=== PATIENT | male | born 1945 | race Caucasian/White ===

== ENCOUNTER 2020-07-16 08:40 | Outpatient (REF) | payer OTHER, SELFPAY ==
[2020-07-16 11:10] LABS: MANUAL DIFF FLAG NO
[2020-07-16 11:32] LABS: Alanine Aminotransferase 15 U/L (0-40); Albumin Level 4.3 g/dL (3.5-5.0); Alkaline Phosphatase 45 U/L (39-117); Anion Gap 11 (12-20); Aspartate Amino Transferase 15 U/L (5-37); Bilirubin Total 1.2 mg/dL (0.0-1.0); Blood Urea Nitrogen 16 mg/dL (9-16); Calcium 8.9 mg/dL (8.4-10.2); Carbon Dioxide 27 mmol/L (22-29); Chloride 106 mmol/L (96-108); Cholesterol 180 mg/dL; Estimated Glomerular Filt Rate > 60; Glucose Fasting 101 mg/dL (60-99); HDL Cholesterol 73 mg/dL; LDL Cholesterol Calculated 92 mg/dl; Potassium 4.3 mmol/l (3.3-5.1); Sodium 140 mmol/L (135-145); Total Protein 6.9 g/dL (6.5-8.0); Triglycerides 78 mg/dL
[2020-07-16 11:34] LABS: Basophils Percent Auto 0.7 % (0-2); Eosinophils Absolute Auto 0.2 X10*3/uL (0.0-0.4); Eosinophils Percent Auto 4.3 % (0-4); Hematocrit 45.4 % (42-52); Hemoglobin 15.1 g/dl (14.0-18.0); Imm Gran Abs Auto 0.04 X10*3/uL (0.00-0.03); Lymphocytes Percent Auto 23.3 % (20-40); Mean Corpuscular HGB Conc 33.3 g/dl (31.0-36.0); Mean Corpuscular Hemoglobin 31.7 pg (27.0-33.0); Mean Corpuscular Volume 95.4 fL (80-98); Mean Platelet Volume 9.7 fL (9.4-12.4); Monocytes Absolute Auto 0.4 X10*3/uL (0.1-1.2); Monocytes Percent Auto 10.2 % (2-11); Neutrophils Absolute Auto 2.5 X10*3/uL (2.0-8.3); Neutrophils Percent Auto 60.5 % (45-73); Platelet Count 156 X10*3/uL (160-400); Red Blood Count 4.76 X10*6/uL (4.60-5.80); Red Cell Distribution Width 12.5 % (11.0-16.0); White Blood Count 4.2 X10*3/uL (4.8-10.8)
[2020-07-16 11:49] LABS: PSA,Total (Free>4and<10) 0.18 ng/mL (0.00-4.00)
== END 2020-07-16 08:41 | disposition home or self-care (01) ==
LOC: CF 08:40
PROVIDERS: PCP Internal Medicine; Visit Provider Urology
DX: N40.1 Benign prostatic hyperplasia with lower urinary tract symptoms (principal); Z79.899 Other long term (current) drug therapy
CPT/HCPCS: 36415; 51798; 80053; 80061; 84153; 85025

== ENCOUNTER 2021-05-19 09:52 | Day surgery (SDC) | payer OTHER, SELFPAY ==
[2021-05-07 15:48] VITALS: BMI 24.7
--- NOTE | 2021-05-12 15:19 | HP_ITS ---
DATE OF SERVICE: 05/19/2021 HISTORY OF PRESENT ILLNESS: The patient is a 75-year-old male, seen today in the office for preop evaluation prior to cataract surgery with Dr. Hurst scheduled for May 19 and June 02. The patient feels well. PRESENT MEDICATIONS: Simvastatin 20 mg a day, finasteride 5 mg a day, vitamin D 1000 a day, Travatan and dorzolamide eye drops. He has had two Pfizer vaccines for COVID. REVIEW OF SYSTEMS: Weight is down 3 pounds. No fevers. No headaches. No palpitations or chest pains. No peripheral edema. Some dyspnea with exertion. No cough or wheeze. No heartburn or stomach pains. Nocturia x3. Arthritis in the left knee. Appetite is okay. No seasonal allergies. No rash complaints. PAST MEDICAL HISTORY: Significant for arthritis of the neck, intestinal polyps, elevated cholesterol, glaucoma, arthritis in the left knee, diverticulosis. ALLERGIES: NO ALLERGIES TO MEDICINES. SOCIAL HISTORY: He quit smoking over 30 years ago. PAST SURGICAL HISTORY: He has had a T and A as a child knee and surgery for arthritis. FAMILY HISTORY: Father at 75 from a stroke. Mother . He has several siblings. PHYSICAL EXAMINATION: GENERAL: He is awake and alert, in no distress. VITAL SIGNS: Temperature is 98, pulse 54, respirations 12, pressure 124/80, 97% saturation. Weight is 153.5, height is 5 feet 6 inches. HEENT: TMs clear. Pharynx clear. NECK: Supple. No nodes, bruits, or masses. HEART: Sounds S1 and S2. Regular rate. LUNGS: Clear. ABDOMEN: Soft and nontender. Positive bowel sounds. No HSM. EXTREMITIES: No clubbing, cyanosis, or edema. One to 2+ pulses. NEUROLOGICAL: Cranial nerves II through XII are intact. He moves all extremities. ASSESSMENTAND PLAN: He is medically stable for cataract surgery. I will be available if there are any medical problems. MD TESSY Brooks/MODL / [id number]
--- NOTE | 2021-05-19 07:08 | MHC.SHP ---
Pre-Procedural Eval Section A Date of Service: 05/19/21 Section B Chief Complaint: Cataract Right Eye, Right Eye Glaucoma Allergies: Allergies Allergy/AdvReac Type Severity Reaction Status Date / Time Beta-Blockers AdvReac Unknown Verified 05/16/21 11:01 (Beta-Adrenergic Bloc timolol AdvReac Unknown Verified 05/16/21 11:01 Plan I have reviewed the history and physical and performed a pertinent physical examination on my patient. No changes have occurred unless specified.
[2021-05-19 12:55] VITALS: BP 154/76; PULSE 53; RESP 16; TEMP 36.6; O2SAT 97
[2021-05-19] MEDS: Tetracaine HCl/PF 0.5% Oph Sol 4 ML DROPS 1 DROP EYE-RIGHT (13:15)
[2021-05-19] MEDS: Tropicamide 1 % Ophth Sol 3 ML BTL 1 DROP EYE-RIGHT ×3 (13:18→13:25)
[2021-05-19] MEDS: Phenylephrine HCL 2.5% Oph SoL 2 ML BOTTLE 1 DROP EYE-RIGHT ×3 (13:20→13:26)
[2021-05-19] MEDS: Lactated Ringers 1,000 ML 50 ML IVCONT ×2 (13:26→13:29)
--- NOTE | 2021-05-19 13:57 | HO.ANESPROP2 ---
[facility] Active Problems Active Problems: All Active Problems (Updated 05/07/21 @ 15:47 by Maria Luisa Lorenzana) BPH loc w urin obs/LUTS (Acute) Past Medical History Medical History BPH (benign prostatic hyperplasia) Elevated cholesterol Glaucoma Family History Family history of problems with anesthesia: No Surgical History Surgical History Hx of colonoscopy S/P left knee arthroscopy History of Problems with Anesthesia: No Social History Social History (Updated 05/07/21 @ 15:48 by Maria Luisa Lorenzana) Patient Tobacco Use Status: Former Tobacco user Quit Date: 1985 Are you DNR?: No Advance Directives: No Advance Directives Information Provided: No Advance Directives on File: No Meds Allergies Allergy/AdvReac Type Severity Reaction Status Date / Time Beta-Blockers AdvReac Severe Unknown Verified 05/19/21 12:51 (Beta-Adrenergic Bloc timolol AdvReac Unknown Verified 05/19/21 12:51 Active Medications: Current Medications Generic Name Dose Route Start Last Admin Trade Name Freq PRN Reason Stop Dose Admin Lactated Ringer's 500 mls @ 50 mls/hr 05/19/21 07:45 Lr IVCONT .Q10H HAWA Povidone Iodine 1 appl 05/19/21 07:08 Povidone Iodine 5 % Ophth Soln 30 Ml Bottle EYE-RIGHT PREOP PRN Pre-Op Surgical Implant Prophy Home Medications Medication Instructions Recorded Confirmed Last Taken Type dorzolamide 2 % eye drops 1 drp OPHTHALMIC (EYE) BID 07/16/20 05/07/21 Unknown History simvastatin 20 mg tablet 20 mg PO BEDTIME 07/16/20 05/07/21 Unknown History tamsulosin 0.4 mg capsule 0.8 mg PO BEDTIME 07/16/20 05/07/21 Unknown History travoprost 0.004 % eye drops 1 drp OPHTHALMIC (EYE) BEDTIME 07/16/20 05/07/21 Unknown History Exam Exam Date and Time: May 19, 2021 1357 Height,Weight and Vital Signs: Height 5 ft 7 in Weight 71.668 kg Last Vital Signs Temp 97.9 F 05/19/21 12:55 Pulse 53 08/16/21 12:55 Resp 16 05/19/21 12:55 BP 154/76 H 05/19/21 12:55 Pulse Ox 97 05/19/21 12:55 Airway Mallampati Class: II (Edentulous) TM Dist: >3cm Neck ROM: Full Heart: pantera Lungs: cta bl Assessment and Plan Assessment Anesthesia Assessment: Anesthesia Plan Discussed and Chart Reviewed Final Anesthetic Review Family History of Problems with Anesthesia: No History of Problems with Anesthesia: No NPO: Yes ASA Class: III Final Preanesthetic Review: No Changes in Pt Med Stat and Consent Obtained/Reviewed Patient Risk: Intermediate Procedure Risk: Intermediate Anesthetic Plan Anesthetic Plan: MAC: Disposition: Standard PACU
--- NOTE | 2021-05-19 14:26 | HO.PNOPHT ---
Ophthalmology Procedure Procedure Date of Service: 05/19/21 Ophthalmology Viscoelastic: Healbryant Duet Dual Pack Pro Ophthalmology Lenses: TECNIS [id number] (23.5) Procedure Notes: PREOPERATIVE DIAGNOSIS: Decreased visual acuity right eye secondary to cataract and glaucoma. POSTOPERATIVE DIAGNOSIS: Same PROCEDURE: Right cataract extraction with intraocular lens insertion and trabeculectomy, right eye SURGEON: Ernesto Hurst M.D. ANESTHESIA: Topical/MAC ESTIMATED BLOOD LOSS: None COMPLICATIONS: None After obtaining informed consent, the patient was brought to the operating room suite and placed in the supine position. After adequate sedation per anesthesia, topical drops of Tetracaine were given to the right eye. The eye was then prepped and draped in the usual sterile fashion. The operating room microscope was then positioned over the right eye and a lid speculum placed. 2% Lidocaine was instilled subconjunctivally. After awaiting 30 seconds, a paracentesis was created superiorly. Hemostasis was then achieved using wet field cautery. Mitomycin .4mg/ml was then placed in the conjunctival pocket and held in place for two minutes. The subconjunctival pocket was then irrigated copiously with 20 mls of BSS. Paracentesis was then created. Viscoelastic was then instilled into the anterior chamber. A crescent blade was then utilized to create a partial thickness sclera wound followed by advancement to clear cornea with the crescent blade. A keratome was then utilized to enter the anterior chamber. Capsulotomy forceps were then utilized to create a continuous circular tear capsulotomy. Hydrodissection and hydrodelineation were carried out until adequate mobilization of the nucleus occurred. Phacoemulsification was utilized to remove the dense central nucleus followed by removal of remnant cortical material utilizing the automated aspiration irrigation unit. Viscoelastic was then instilled into the posterior capsular bag followed by placement of a posterior chamber intraocular lens. Attention was then directed to create a trabeculectomy. A Rebeka punch was then utilized to create the trabeculectomy. The residual Viscoelastic was then removed utilizing the automated IA machine. The egress of aqueous was evaluated and found to be appropriate. The conjunctiva was then closed with a 9-0 vicryl suture. BSS was then instilled into the anterior chamber creating a superior bleb, without obvious leakage. Intracameral injection of Vigamox 0.3%, 0.1 ml and subtenon injection of Kenalog-40 0.2 ml was given followed by an atropine drop. The patient tolerated the procedure well and will be followed up in the a.m.
[2021-05-19 15:27] VITALS: BP 149/76; PULSE 50; RESP 16; TEMP 36.4; O2SAT 100
== END 2021-05-19 15:51 | disposition home or self-care (01) ==
PROVIDERS: PCP Internal Medicine; Visit Provider Ophthalmology
PROC: (CPT 66984; principal; 2021-05-19 13:00)
DX: H25.11 Age-related nuclear cataract, right eye (principal); H40.1111 Primary open-angle glaucoma, right eye, mild stage; Z83.511 Family history of glaucoma; E78.00 Pure hypercholesterolemia, unspecified; Z79.899 Other long term (current) drug therapy; Z87.891 Personal history of nicotine dependence
CPT/HCPCS: 66984; 66170; J2250; J3300; J7315; V2632

== ENCOUNTER 2021-06-02 08:26 | Day surgery (SDC) | payer OTHER, SELFPAY ==
[2021-05-07 15:50] VITALS: BMI 24.7
--- NOTE | 2021-05-26 14:52 | MHC.SHP ---
Pre-Procedural Eval Section A Date of Service: 05/26/21 The patient is an INPATIENT: No The History & Physical has been completed within 30 days and I have reviewed it.: Yes Section B Chief Complaint: Cataract Left Eye, Glaucoma Allergies: Allergies Allergy/AdvReac Type Severity Reaction Status Date / Time Beta-Blockers AdvReac Severe Unknown Verified 05/19/21 12:51 (Beta-Adrenergic Bloc timolol AdvReac Unknown Verified 05/19/21 12:51 Plan Diagnosis/Plan: Unchanged I have reviewed the history and physical and performed a pertinent physical examination on my patient. No changes have occurred unless specified.
--- NOTE | 2021-05-29 14:47 | HO.ANESPROP2 ---
Documented by User: Lashonda Overton NP 05/30/21 09:29 HPI - Anesthesia Eval Consult details Narrative: 75yo M for Left Cataract Extraction IOL Trabeculectomy PCP cleared Right eye 05/19/21: Midaz 1 PMFSH Active Problems Active Problems: All Active Problems (Updated 05/07/21 @ 15:47 by Maria Luisa Lorenzana RN) BPH loc w urin obs/LUTS (Acute) Past Medical History Medical History BPH (benign prostatic hyperplasia) Elevated cholesterol Glaucoma Family History Family history of problems with anesthesia: No Surgical History Surgical History Hx of colonoscopy S/P left knee arthroscopy History of Problems with Anesthesia: No Social History Social History Patient Tobacco Use Status: Former Tobacco user Quit Date: 1985 Use of substances other than those prescribed or required for medical reasons: No Are you DNR?: No Advance Directives: No Advance Directives Information Provided: No Advance Directives on File: No Meds Allergies Allergy/AdvReac Type Severity Reaction Status Date / Time Beta-Blockers AdvReac Severe Unknown Verified 05/19/21 12:51 (Beta-Adrenergic Bloc timolol AdvReac Unknown Verified 05/19/21 12:51 Home Medications Medication Instructions Recorded Confirmed Last Taken Type dorzolamide 2 % eye drops 1 drp OPHTHALMIC (EYE) BID 07/16/20 05/07/21 Unknown History simvastatin 20 mg tablet 20 mg PO BEDTIME 07/16/20 05/07/21 Unknown History tamsulosin 0.4 mg capsule 0.8 mg PO BEDTIME 07/16/20 05/07/21 Unknown History travoprost 0.004 % eye drops 1 drp OPHTHALMIC (EYE) BEDTIME 07/16/20 05/07/21 Unknown History Exam Exam Date and Time: May 29, 2021 1447 Height,Weight and Vital Signs: Height 5 ft 7 in Weight 71.668 kg Assessment and Plan Assessment Anesthesia Assessment: Chart Reviewed Final Anesthetic Review Family History of Problems with Anesthesia: No History of Problems with Anesthesia: No Documented by User: Lilian Anne MD 06/02/21 11:40 PMFSH Past Medical History Medical History BPH (benign prostatic hyperplasia) Elevated cholesterol Glaucoma Functional capacity: independent ambulation Surgical History Surgical History Hx of colonoscopy S/P left knee arthroscopy Social History Social History Patient Tobacco Use Status: Former Tobacco user Quit Date: 1985 Use of substances other than those prescribed or required for medical reasons: No Are you DNR?: No Advance Directives: No Advance Directives Information Provided: No Advance Directives on File: No Meds Allergies Allergy/AdvReac Type Severity Reaction Status Date / Time Beta-Blockers AdvReac Severe Unknown Verified 05/19/21 12:51 (Beta-Adrenergic Bloc timolol AdvReac Unknown Verified 05/19/21 12:51 Home Medications Medication Instructions Recorded Confirmed Last Taken Type dorzolamide 2 % eye drops 1 drp OPHTHALMIC (EYE) BID 07/16/20 05/07/21 Unknown History simvastatin 20 mg tablet 20 mg PO BEDTIME 07/16/20 05/07/21 Unknown History tamsulosin 0.4 mg capsule 0.8 mg PO BEDTIME 07/16/20 05/07/21 Unknown History travoprost 0.004 % eye drops 1 drp OPHTHALMIC (EYE) BEDTIME 07/16/20 05/07/21 Unknown History Exam Airway Mallampati Class: II (Edentulous) TM Dist: >3cm Neck ROM: Full Loose/Missing/Broken Teeth: Yes, Upper and Lower Heart: RRR Lungs: CTA Assessment and Plan Assessment Anesthesia Assessment: Anesthesia Plan Discussed Final Anesthetic Review NPO: Yes ASA Class: II Final Preanesthetic Review: Meds/Allgs Chart Reviewed, Consent Obtained/Reviewed and Anes Risks/Benef Reviewed Patient Risk: Low Procedure Risk: Low Anesthetic Plan Anesthetic Plan: MAC: Disposition: Standard PACU
[2021-06-02 10:44] VITALS: BP 183/74; PULSE 58; RESP 18; TEMP 36.6; O2SAT 97
[2021-06-02] MEDS: Phenylephrine HCL 2.5% Oph SoL 2 ML BOTTLE 1 DROP EYE-LEFT ×3 (10:47→10:49)
[2021-06-02] MEDS: Lactated Ringers 500 ML 50 ML IV (10:47)
[2021-06-02] MEDS: Tetracaine HCl/PF 0.5% Oph Sol 4 ML DROPS 1 DROP EYE-LEFT (10:47)
[2021-06-02] MEDS: Tropicamide 1 % Ophth Sol 3 ML BTL 1 DROP EYE-LEFT ×3 (10:47→10:49)
[2021-06-02 11:02] VITALS: BP 170/61
--- NOTE | 2021-06-02 12:15 | HO.PNOPHT ---
Ophthalmology Procedure Procedure Date of Service: 06/02/21 Ophthalmology Viscoelastic: Healon Duet Dual Pack Pro Ophthalmology Lenses: TECNIS [id number] (23.5) Procedure Notes: PREOPERATIVE DIAGNOSIS: Decreased visual acuity left eye secondary to cataract and glaucoma POSTOPERATIVE DIAGNOSIS: Same PROCEDURE: Left cataract extraction with intraocular lens insertion and trabeculectomy, left eye SURGEON: Ernesto Hurst M.D. ANESTHESIA: Topical/MAC ESTIMATED BLOOD LOSS: None COMPLICATIONS: None After obtaining informed consent, the patient was brought to the operating room suite and placed in the supine position. After adequate sedation per anesthesia, topical drops of Tetracaine were given to the left eye. The eye was then prepped and draped in the usual sterile fashion. The operating room microscope was then positioned over the left eye and a lid speculum placed. 2% Lidocaine was instilled subconjunctivally. After awaiting 30 seconds, a paracentesis was created superiorly. Hemostasis was then achieved using wet field cautery. Mitomycin .4mg/ml was then placed in the conjunctival pocket and held in place for two minutes. The subconjunctival pocket was then irrigated copiously with 20 mls of BSS. Paracentesis was then created. Viscoelastic was then instilled into the anterior chamber. A crescent blade was then utilized to create a partial thickness sclera wound followed by advancement to clear cornea with the crescent blade. A keratome was then utilized to enter the anterior chamber. Capsulotomy forceps were then utilized to create a continuous circular tear capsulotomy. Hydrodissection and hydrodelineation were carried out until adequate mobilization of the nucleus occurred. Phacoemulsification was utilized to remove the dense central nucleus followed by removal of remnant cortical material utilizing the automated aspiration irrigation unit. Viscoelastic was then instilled into the posterior capsular bag followed by placement of a posterior chamber intraocular lens. Attention was then directed to create a trabeculectomy. A Rebeka punch was then utilized to create the trabeculectomy. The residual Viscoelastic was then removed utilizing the automated IA machine. The egress of aqueous was evaluated and found to be appropriate. The conjunctiva was then closed with a 9-0 vicryl suture. BSS was then instilled into the anterior chamber creating a superior bleb, without obvious leakage. Intracameral injection of Vigamox 0.3%, 0.1 ml and subtenon injection of Kenalog-40 0.2 ml was given followed by an atropine drop. The patient tolerated the procedure well and will be followed up in the a.m.
[2021-06-02 13:28] VITALS: BP 137/61; PULSE 53; RESP 16; TEMP 36.5; O2SAT 99
[2021-06-02 13:40] VITALS: BP 140/62; PULSE 56; RESP 16; O2SAT 99
== END 2021-06-02 13:41 | disposition home or self-care (01) ==
PROVIDERS: PCP Internal Medicine; Visit Provider Ophthalmology
PROC: (CPT 66984; principal; 2021-06-02 12:40)
DX: H25.12 Age-related nuclear cataract, left eye (principal); H40.1421 Capsular glaucoma with pseudoexfoliation of lens, left eye, mild stage; H54.7 Unspecified visual loss; Z83.511 Family history of glaucoma; E78.00 Pure hypercholesterolemia, unspecified; Z79.899 Other long term (current) drug therapy; Z87.891 Personal history of nicotine dependence
CPT/HCPCS: 66984; 66170; J2250; J3010; J3300; J7315; V2632

== ENCOUNTER 2021-07-09 07:01 | Outpatient (REF) | payer OTHER, SELFPAY ==
[2021-07-09 12:03] LABS: PSA,Total (Free>4and<10) 0.17 ng/mL (0.00-4.00)
== END 2021-07-09 07:02 | disposition home or self-care (01) ==
LOC: HO.HMGCLDS 07:01
PROVIDERS: PCP Internal Medicine; Visit Provider Urology
DX: Z12.5 Encounter for screening for malignant neoplasm of prostate (principal); N40.1 Benign prostatic hyperplasia with lower urinary tract symptoms
CPT/HCPCS: 36415; 84153

== ENCOUNTER → 2021-07-17 08:42 | Outpatient (BNVA) | payer OTHER, SELFPAY | PROVIDERS: Visit Provider Urology | DX: N40.1 Benign prostatic hyperplasia with lower urinary tract symptoms (principal) ==

== ENCOUNTER 2021-08-20 07:13 | Outpatient (REF) | payer OTHER, SELFPAY ==
[2021-08-20 11:28] LABS: MANUAL DIFF FLAG NO
[2021-08-20 11:38] LABS: Basophils Percent Auto 0.4 % (0-2); Eosinophils Absolute Auto 0.2 X10*3/uL (0.0-0.4); Eosinophils Percent Auto 3.3 % (0-4); Hematocrit 45.2 % (42.0-52.0); Hemoglobin 15.3 g/dl (14.0-18.0); Imm Gran Abs Auto 0.03 X10*3/uL (0.00-0.03); Imm Gran Pct Auto 0.7 % (0.0-0.4); Lymphocytes Absolute Auto 1.2 X10*3/uL (1.2-4.9); Lymphocytes Percent Auto 26.5 % (20-40); Mean Corpuscular HGB Conc 33.8 g/dl (31.0-36.0); Mean Corpuscular Volume 94.6 fL (80.0-98.0); Mean Platelet Volume 9.7 fL (9.4-12.4); Monocytes Absolute Auto 0.4 X10*3/uL (0.1-1.2); Monocytes Percent Auto 9.6 % (2-11); Neutrophils Absolute Auto 2.7 x10*3/uL (2.0-8.3); Neutrophils Percent Auto 59.5 % (45-73); Platelet Count 167 X10*3/uL (160-400); Red Blood Count 4.78 X10*6/uL (4.60-5.80); Red Cell Distribution Width 12.4 % (11.0-16.0); White Blood Count 4.6 X10*3/uL (4.8-10.8)
[2021-08-20 12:05] LABS: Alanine Aminotransferase 16 U/L (0-40); Albumin Level 4.2 g/dL (3.5-5.0); Alkaline Phosphatase 49 U/L (39-117); Anion Gap 11 (12-20); Aspartate Amino Transferase 18 U/L (5-37); Bilirubin Total 1.3 mg/dL (0.0-1.0); Blood Urea Nitrogen 15 mg/dL (9-16); Calcium 8.8 mg/dL (8.4-10.2); Carbon Dioxide 27 mmol/L (22-29); Chloride 105 mmol/L (96-108); Cholesterol 196 mg/dL; Estimated Glomerular Filt Rate > 60; Glucose Fasting 90 mg/dL (60-99); HDL Cholesterol 75 mg/dL; LDL Cholesterol Calculated 106 mg/dl; Potassium 4.2 mmol/L (3.3-5.1); Sodium 139 mmol/L (135-145); Total Protein 6.7 g/dL (6.5-8.0); Triglycerides 78 mg/dL
== END 2021-08-20 07:14 | disposition home or self-care (01) ==
LOC: HO.HMGCLDS 07:13
PROVIDERS: PCP Internal Medicine; Visit Provider Internal Medicine
DX: N40.0 Benign prostatic hyperplasia without lower urinary tract symptoms (principal); E78.00 Pure hypercholesterolemia, unspecified; K57.90 Diverticulosis of intestine, part unspecified, without perforation or abscess without bleeding
CPT/HCPCS: 36415; 80053; 80061; 85025

== ENCOUNTER 2022-02-16 10:38 | Outpatient (REF) | payer OTHER, SELFPAY ==
[2022-02-16 13:33] LABS: MANUAL DIFF FLAG NO
[2022-02-16 13:35] LABS: Basophils Percent Auto 0.4 % (0-2); Eosinophils Absolute Auto 0.1 X10*3/uL (0.0-0.4); Eosinophils Percent Auto 2.9 % (0-4); Hematocrit 43.9 % (42.0-52.0); Hemoglobin 14.8 g/dl (14.0-18.0); Imm Gran Abs Auto 0.03 X10*3/uL (0.00-0.03); Imm Gran Pct Auto 0.7 % (0.0-0.4); Lymphocytes Absolute Auto 1.1 X10*3/uL (1.2-4.9); Lymphocytes Percent Auto 24.3 % (20-40); Mean Corpuscular HGB Conc 33.7 g/dl (31.0-36.0); Mean Corpuscular Hemoglobin 31.4 pg (27.0-33.0); Mean Corpuscular Volume 93.2 fL (80.0-98.0); Mean Platelet Volume 9.9 fL (9.4-12.4); Monocytes Absolute Auto 0.5 X10*3/uL (0.1-1.2); Monocytes Percent Auto 10.8 % (2-11); Neutrophils Absolute Auto 2.7 x10*3/uL (2.0-8.3); Neutrophils Percent Auto 60.9 % (45-73); Platelet Count 169 X10*3/uL (160-400); Red Blood Count 4.71 X10*6/uL (4.60-5.80); Red Cell Distribution Width 12.8 % (11.0-16.0); White Blood Count 4.5 X10*3/uL (4.8-10.8)
[2022-02-16 13:48] LABS: Appearance Urine CLEAR; Color Urine YELLOW; Glucose Urine UA NEG (NEG); Leukocyte Esterase Urine TRACE (NEG); Nitrite Urine NEG (NEG); Specific Gravity - Urine 1.025 (1.005-1.025); UACC Culture Trigger NO; Urine Blood 3+ (NEG); Urine Ketones NEG (NEG); Urine Protein TRACE MG/DL (NEG-TRACE)
[2022-02-16 13:59] LABS: Anion Gap 12 (12-20); Blood Urea Nitrogen 16 mg/dL (9-16); Calcium 9.6 mg/dL (8.4-10.2); Carbon Dioxide 28 mmol/L (22-29); Chloride 106 mmol/L (96-108); Estimated Glomerular Filt Rate > 60; Glucose Random 92 mg/dL (60-115); Potassium 4.6 mmol/L (3.3-5.1); Sodium 141 mmol/L (135-145)
[2022-02-16 14:13] LABS: Erythrocyte Sedimentation Rate 2 MM/HR (0-15)
[2022-02-16 14:15] LABS: Bacteria Urine 1+ /LPF; UACC CULT YES; WBC Urine 30-49 /HPF (0-4)
[2022-02-16 14:23] LABS: Free T4 (Free Thyroxine) 0.94 ng/dL (0.71-1.85); Thyroid Stimulating Hormone 1.33 uIU/mL (0.32-4.0)
[2022-02-16 14:46] LABS: Vitamin B12 339 pg/mL (200-900)
== END 2022-02-16 10:39 | disposition home or self-care (01) ==
LOC: HO.10HDL 10:38
PROVIDERS: Visit Provider Internal Medicine
DX: R31.9 Hematuria, unspecified (principal); N40.0 Benign prostatic hyperplasia without lower urinary tract symptoms; Z91.81 History of falling
CPT/HCPCS: 36415; 80048; 81001; 81003; 82607; 84439; 84443; 85025; 85652; 86140; 87086

== ENCOUNTER 2022-02-19 07:14 | Outpatient (REF) | payer OTHER, SELFPAY ==
[2022-02-19 11:26] LABS: Appearance Urine CLEAR; Color Urine YELLOW; Glucose Urine UA NEG (NEG); Leukocyte Esterase Urine NEG (NEG); Nitrite Urine NEG (NEG); PH 7.5 (5.0-8.0); Specific Gravity - Urine 1.015 (1.005-1.025); UACC Culture Trigger NO; Urine Blood 2+ (NEG); Urine Ketones NEG (NEG); Urine Protein NEG (NEG-TRACE)
[2022-02-19 11:44] LABS: UACC CULT YES
== END 2022-02-19 07:15 | disposition home or self-care (01) ==
LOC: HO.HMGCLDS 07:14
PROVIDERS: Visit Provider Internal Medicine
DX: R31.9 Hematuria, unspecified (principal)
CPT/HCPCS: 81001; 87086

== ENCOUNTER 2022-07-08 09:13 | Outpatient (REF) | payer MEDICARE, SELFPAY ==
[2022-07-08 17:51] LABS: Urine Cytology See Pathology rpt
== END 2022-07-08 09:14 | disposition home or self-care (01) ==
LOC: HO.LAB 09:13
PROVIDERS: PCP Internal Medicine; Visit Provider Urology
DX: R31.29 Other microscopic hematuria (principal); N39.43 Post-void dribbling; N40.1 Benign prostatic hyperplasia with lower urinary tract symptoms
CPT/HCPCS: 51798; 88112; 99212

== ENCOUNTER 2022-08-21 08:50 | Outpatient (REF) | payer MEDICARE, SELFPAY ==
[2022-08-21 17:15] LABS: Urine Cytology See Pathology rpt
== END 2022-08-21 08:51 | disposition home or self-care (01) ==
LOC: HO.LAB 08:50
PROVIDERS: PCP Internal Medicine; Visit Provider Urology
DX: C67.9 Malignant neoplasm of bladder, unspecified (principal); R31.9 Hematuria, unspecified; N40.1 Benign prostatic hyperplasia with lower urinary tract symptoms; N39.43 Post-void dribbling
CPT/HCPCS: 52000; 88112; 99212

== ENCOUNTER 2022-08-28 07:04 | Outpatient (REF) | payer MEDICARE, SELFPAY ==
[2022-08-28 07:51] LABS: Blood Urea Nitrogen 18 mg/dL (9-16); Estimated Glomerular Filt Rate > 60
== END 2022-08-28 07:05 | disposition home or self-care (01) ==
LOC: HO.LAB 07:04
PROVIDERS: PCP Internal Medicine; Visit Provider Urology
DX: C67.9 Malignant neoplasm of bladder, unspecified (principal)
CPT/HCPCS: 36415; 82565; 84520

== ENCOUNTER 2022-09-01 08:17 | Outpatient (REF) | payer MEDICARE, SELFPAY ==
--- NOTE | ~2022-09-01 | CT_ITS ---
EXAMINATION: CT ABDOMEN AND PELVIS WITHOUT AND WITH CONTRAST CLINICAL INFORMATION: Gross hematuria. COMPARISON: Renal ultrasound 05/31/2018. TECHNIQUE: Noncontrast CT of the abdomen and pelvis is performed followed by split bolus contrast-enhanced images using 85 mL Omnipaque 350 contrast.? Postcontrast imaging is performed during the combined nephrogram and excretion phase. Sagittal and coronal reformatted images were obtained on the technologist's workstation for both the precontrast and postcontrast phases. This CT examination was performed using dose optimization techniques as appropriate, variously including the following: *Automated exposure control *Adjustment of mA and/or kV according to patient size (this includes techniques or standardized protocols for targeted exams where dose is matched to indication/reason for exam; i.e. extremities or head) *Use of iterative reconstruction technique DLP: 551 mGy-cm FINDINGS: LUNG BASES: The visualized lung bases are unremarkable. LIVER, GALLBLADDER, AND BILIARY TREE: The liver is normal in size, shape, and attenuation. No focal hepatic lesion or biliary ductal dilatation is present. The gallbladder is unremarkable with no evidence of radiopaque gallstones, gallbladder wall thickening, or obvious pericholecystic inflammatory changes. PANCREAS: Unremarkable. SPLEEN: Unremarkable. ADRENAL GLANDS: Unremarkable. KIDNEYS AND URETERS: There is a 4 mm nonobstructive calculi in the lower pole calyx of the left kidney. Following IV contrast there is symmetric bilateral cortical nephrograms without any enhancing renal mass, cyst or mass effect. No perinephric stranding seen. There is good opacification of bilateral kidney pelvises and the calyces without obstruction. 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 Both ureters unite distally in the in the lower pelvis is one ureter as it enters into the bladder. BLADDER: The bladder is well opacified with excreted urinary contrast.. There is eccentric left lateral and posterior bladder wall thickening suspicious of a bladder mass. The thickening involves superiorly as well. The bladder thickness maximum measures 1.5 cm. GASTROINTESTINAL TRACT: Scattered stool and gas is seen throughout the colon without distention. The small bowel loops are normal caliber. Appendix is not visualized. The stomach is nondistended. ABDOMINAL WALL: No significant hernia is appreciated. LYMPH NODES: There is a 6 mm right internal iliac lymph node axial image 60/8. No abnormal inguinal lymph nodes are seen. VASCULAR: Unremarkable. PELVIC VISCERA: No free fluid. Nonspecific mild thickening of the rectoanal junction is noted. No fat stranding. OSSEUS STRUCTURES: There is moderate ventral spondylosis throughout the lumbar spine. No aggressive lytic or sclerotic process seen. Superior endplate Schmorl's node seen at L5 vertebra. CT/CT urogram IMPRESSION: 1. Eccentric left lateral and posterior bladder wall thickening suspicious for BLADDER MASS. The bladder wall thickening extends superiorly as well. Findings are highly suspicious for bladder mass and cystoscopy is recommended. 2. There is a 6 mm right internal iliac lymph node. 3. Nonobstructive 4 mm calculi lower pole left kidney. No enhancing renal mass, cyst or hydronephrosis. 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 4. Mild constipation.
[2022-09-01] MEDS: iohexoL 350 MG/ML 100 ML INFUS..BTL IV (09:52)
== END 2022-09-01 08:18 | disposition home or self-care (01) ==
LOC: HO.CT 08:17
PROVIDERS: PCP Internal Medicine; Visit Provider Urology
DX: C67.9 Malignant neoplasm of bladder, unspecified (principal); R31.0 Gross hematuria
CPT/HCPCS: 74178; Q9967

== ENCOUNTER 2022-09-10 06:56 | Outpatient (REF) | payer MEDICARE, SELFPAY ==
[2022-09-10 11:21] LABS: MANUAL DIFF FLAG NO
[2022-09-10 11:42] LABS: Basophils Percent Auto 0.5 % (0-2); Eosinophils Absolute Auto 0.1 X10*3/uL (0.0-0.4); Eosinophils Percent Auto 3.4 % (0-4); Hematocrit 45.2 % (42.0-52.0); Hemoglobin 14.9 g/dl (14.0-18.0); Imm Gran Abs Auto 0.03 X10*3/uL (0.00-0.03); Imm Gran Pct Auto 0.7 % (0.0-0.4); Lymphocytes Absolute Auto 1.1 X10*3/uL (1.2-4.9); Lymphocytes Percent Auto 27.4 % (20-40); Mean Corpuscular Hemoglobin 31.1 pg (27.0-33.0); Mean Corpuscular Volume 94.4 fL (80.0-98.0); Monocytes Absolute Auto 0.5 X10*3/uL (0.1-1.2); Monocytes Percent Auto 13.1 % (2-11); Neutrophils Absolute Auto 2.3 x10*3/uL (2.0-8.3); Neutrophils Percent Auto 54.9 % (45-73); Platelet Count 168 X10*3/uL (160-400); Red Blood Count 4.79 X10*6/uL (4.60-5.80); Red Cell Distribution Width 12.6 % (11.0-16.0); White Blood Count 4.1 X10*3/uL (4.8-10.8)
[2022-09-10 12:18] LABS: Alanine Aminotransferase 28 U/L (0-40); Albumin Level 4.3 g/dL (3.5-5.0); Alkaline Phosphatase 55 U/L (39-117); Anion Gap 9 (12-20); Aspartate Amino Transferase 23 U/L (5-37); Bilirubin Total 1.3 mg/dL (0.0-1.0); Blood Urea Nitrogen 14 mg/dL (9-16); Calcium 9.6 mg/dL (8.4-10.2); Carbon Dioxide 31 mmol/L (22-29); Chloride 104 mmol/L (96-108); Cholesterol 184 mg/dL; Estimated Glomerular Filt Rate > 60; Glucose Fasting 93 mg/dL (60-99); HDL Cholesterol 65 mg/dL; LDL Cholesterol Calculated 105 mg/dl; Potassium 4.2 mmol/L (3.3-5.1); Prostate Specific Antigen Scr 0.43 ng/mL (<0.05-4.0); Sodium 140 mmol/L (135-145); Total Protein 6.7 g/dL (6.5-8.0); Triglycerides 73 mg/dL
== END 2022-09-10 06:57 | disposition home or self-care (01) ==
LOC: HO.HMGCLDS 06:56
PROVIDERS: PCP Internal Medicine; Visit Provider Internal Medicine
DX: Z12.5 Encounter for screening for malignant neoplasm of prostate (principal); N40.0 Benign prostatic hyperplasia without lower urinary tract symptoms; E78.00 Pure hypercholesterolemia, unspecified; K57.90 Diverticulosis of intestine, part unspecified, without perforation or abscess without bleeding
CPT/HCPCS: 36415; 80053; 80061; 84153; 85025

== ENCOUNTER 2022-09-14 09:13 | Day surgery (SDC) | payer MEDICARE, SELFPAY ==
[2022-09-08 12:06] VITALS: BMI 24.5
--- NOTE | 2022-09-11 10:59 | HO.ANESPROP2 ---
Documented by User: Lashonda Overton NP 09/11/22 11:01 HPI - Anesthesia Eval Consult details Narrative: 77yo M for?TUR Bladder Tumor PMFSH Active Problems Active Problems: All Active Problems (Updated 09/08/22 @ 12:00 by Jennifer Moreland RN) BPH loc w urin obs/LUTS (Acute) Benign prostatic hyperplasia (BPH) with post-void dribbling (Acute) Urinary dribbling (Acute) Bladder cancer (Acute) Past Medical History Medical History Acute cystitis without hematuria Bladder outlet obstruction BPH (benign prostatic hyperplasia) Elevated cholesterol Glaucoma Hyperlipidemia Overactive bladder Parkinson disease UTI (urinary tract infection) Surgical History Surgical History History of biopsy of bladder History of cataract extraction Hx of colonoscopy S/P left knee arthroscopy History of Problems with Anesthesia: No Social History Social History Are you a primary hospice home care coordinator to a significant other at home: No Do you presently have visiting nurse or other home services: No Patient Tobacco Use Status: Former Tobacco user Quit Date: 1985 Tobacco use type: Cigarette Use of substances other than those prescribed or required for medical reasons: No Have you been hit, kicked, punched, or otherwise hurt by someone within the past year? If so, by whom?: No Are you DNR?: No Advance Directives: No Advance Directives Information Provided: Yes Advance Directives on File: No Recently lost weight without trying: No Eating poorly because of decreased appetite: No Nutrition Risks: No Nutritional Risk Meds Allergies Allergy/AdvReac Type Severity Reaction Status Date / Time Beta-Blockers AdvReac Severe low heart Verified 09/08/22 12:00 (Beta-Adrenergic Bloc rate- tired timolol AdvReac Low heart Verified 09/08/22 12:00 rate, tired Home Medications Medication Instructions Recorded Confirmed Last Taken Type simvastatin 20 mg tablet 20 mg PO BEDTIME 07/16/20 09/08/22 Unknown History ropinirole 0.25 mg tablet 0.25 mg PO TID 07/06/22 09/08/22 Unknown History carbidopa 25 mg-levodopa 100 mg 0.5 tab PO TID 09/08/22 09/08/22 Unknown History tablet Exam Exam Date and Time: September 11, 2022 1059 Height,Weight and Vital Signs: Height 5 ft 7 in Weight 71.214 kg Pertinent Lab Results Pertinent Lab Results: Laboratory Tests 09/10/22 09/10/22 07:05 07:05 WBC 4.1 L Hgb 14.9 Hct 45.2 Plt Count 168 Sodium 140 Potassium 4.2 Chloride 104 Carbon Dioxide 31 H BUN 14 Creatinine 0.91 Assessment and Plan Assessment Anesthesia Assessment: Chart Reviewed Final Anesthetic Review History of Problems with Anesthesia: No Documented by User: Lilian Anne MD 09/14/22 10:53 PMFSH Past Medical History Medical History Acute cystitis without hematuria Bladder outlet obstruction BPH (benign prostatic hyperplasia) Elevated cholesterol Glaucoma Hyperlipidemia Overactive bladder Parkinson disease UTI (urinary tract infection) Surgical History Surgical History History of biopsy of bladder History of cataract extraction Hx of colonoscopy S/P left knee arthroscopy Social History Social History Are you a primary hospice home care coordinator to a significant other at home: No Do you presently have visiting nurse or other home services: No Patient Tobacco Use Status: Former Tobacco user Quit Date: 1985 Tobacco use type: Cigarette Use of substances other than those prescribed or required for medical reasons: No Have you been hit, kicked, punched, or otherwise hurt by someone within the past year? If so, by whom?: No Are you DNR?: No Advance Directives: No Advance Directives Information Provided: Yes Advance Directives on File: No Recently lost weight without trying: No Eating poorly because of decreased appetite: No Nutrition Risks: No Nutritional Risk Meds Allergies Allergy/AdvReac Type Severity Reaction Status Date / Time Beta-Blockers AdvReac Severe low heart Verified 09/08/22 12:00 (Beta-Adrenergic Bloc rate- tired timolol AdvReac Low heart Verified 09/08/22 12:00 rate, tired Home Medications Medication Instructions Recorded Confirmed Last Taken Type simvastatin 20 mg tablet 20 mg PO BEDTIME 07/16/20 09/08/22 Unknown History ropinirole 0.25 mg tablet 0.25 mg PO TID 07/06/22 09/08/22 Unknown History carbidopa 25 mg-levodopa 100 mg 0.5 tab PO TID 09/08/22 09/08/22 Unknown History tablet Exam Airway Mallampati Class: II (Edentulous) TM Dist: >3cm Neck ROM: Full Loose/Missing/Broken Teeth: Yes, Upper and Lower Heart: RRR Lungs: CTA Assessment and Plan Assessment Anesthesia Assessment: Anesthesia Plan Discussed Final Anesthetic Review NPO: Yes ASA Class: III Final Preanesthetic Review: Meds/Allgs Chart Reviewed, Consent Obtained/Reviewed and Anes Risks/Benef Reviewed Patient Risk: Intermediate Procedure Risk: Low Anesthetic Plan Anesthetic Plan: GA Disposition: Standard PACU
[2022-09-14] VITALS (9 sets, daily range): BP systolic 121–155; BP diastolic 56–70; PULSE 46–62; RESP 10–18; TEMP 36.2–36.6; O2SAT 98–100
[2022-09-14] MEDS: Lactated Ringers 1,000 ML 100 ML IVCONT (10:15)
--- NOTE | 2022-09-14 11:19 | P.HPSUR_ITS ---
Pre-Procedural Eval Section A Date of Service: 09/14/22 The patient is an INPATIENT: No The History & Physical has been completed within 30 days and I have reviewed it.: Yes Section B Chief Complaint: Malignant neoplasm of bladder, Details of Present Illness: normal CT urogram Allergies: Allergies Allergy/AdvReac Type Severity Reaction Status Date / Time Beta-Blockers AdvReac Severe low heart Verified 09/08/22 12:00 (Beta-Adrenergic Bloc rate- tired timolol AdvReac Low heart Verified 09/08/22 12:00 rate, tired Review of Systems Sugical H&P ROS: Negative: Constitution, Cardiovascular, Respiratory, Neurological, Psychiatric, Hem-Onc, Allergic/Immunologic, Gastrointestinal, Genitourinary, Musculoskeletal, Integumentary, Endocrine and Eyes/Ears/Nose/Throat Exam Surgical H&P Exam: Normal: HEENT, Normal: Heart, Normal: Lungs, Normal: Extre mities, Normal: Abdomen, Normal: Skin and Normal: Neurological Plan Diagnosis/Plan: Unchanged ( trans resection of bladder tumor right sidewall) I have reviewed the history and physical and performed a pertinent physical examination on my patient. No changes have occurred unless specified. Time Spent With Patient Time: Total time managing care of this patient today ____ minutes.
[2022-09-14] MEDS: Acetaminophen 325 MG TABLET 975 MG PO (11:28)
--- NOTE | 2022-09-14 13:08 | W.PM.OPN ---
Operative Note Operative Note Date of Service: 09/14/22 Narrative: PreOperative Diagnosis: bladder cancer Post Operative Diagnosis: bladder cancer Procedure: TURBT large, left ureteric orifice resection, left stent placement Surgeon: Dr Ed Garcia Anesthesia: general Indications for procedure: Seen for hematuria July. Cystoscopy in office showed left-sided flat lesion on bladder with pronounced mucosal irritation throughout. CT urogram suggests minimal obstruction. Procedure: After informed consent was verified the patient was brought to the operating room and placed in a supine position. Anesthesia was administered per protocol. The patient was placed in a modified dorsal lithotomy position and prepped and draped in a sterile fashion. Safety pause time-out was performed. Antibiotics were confirmed. A 26 Turkmen continuous flow resectoscope was inserted per urethra. The visual obturator was used in order to minimize potential for urethral damage. There was extensive lesions on the right upper sidewall, posterior left and coming down to involve the left ureteric orifice. These were flat in nature. Friable mucosa. Resection was 1st completed on the right sidewall. Care was taken. There appeared to be muscle invasion however depth is unable to be assessed. The initial lesion on the right sidewall was approximately 5 cm x 5 cm. Similar size lesion was on the left posterior sidewall that also extended down to involve the left ureteric orifice. Resection was performed. Resection was performed through left ureteric orifice. Remnant left ureter was then located. The resectoscope was removed. A regular cystoscope was placed. Wire was placed up the left ureter. A 6 Turkmen by 26 cm double-J stent was placed. Extensive fulguration was performed throughout the bladder mucosa. A [address] [place] catheter was placed with gentle irrigation. The patient tolerated the procedure well. They were extubated in the operating room and transferred in stable condition to the recovery area. Pathology: Bladder tumor Drains: Cordova
== END 2022-09-14 14:45 | disposition home or self-care (01) ==
PROVIDERS: PCP Internal Medicine; Visit Provider Urology
PROC: 0TBB8ZZ Excision of Bladder, Via Natural or Artificial Opening Endoscopic (ICD-10-PCS; CPT 52240; principal; 2022-09-14 11:10)
DX: C67.8 Malignant neoplasm of overlapping sites of bladder (principal); N32.3 Diverticulum of bladder; N32.81 Overactive bladder; N40.0 Benign prostatic hyperplasia without lower urinary tract symptoms; N39.43 Post-void dribbling; N32.0 Bladder-neck obstruction; E78.00 Pure hypercholesterolemia, unspecified; E78.5 Hyperlipidemia, unspecified; H40.9 Unspecified glaucoma; Z88.8 Allergy status to other drugs, medicaments and biological substances; Z79.899 Other long term (current) drug therapy
CPT/HCPCS: 52240; 52332; 88307; C1769; C2617; J1956; J2405; J3010

== ENCOUNTER → 2022-09-21 09:19 | Outpatient (BNVA) | payer MEDICARE, SELFPAY | PROVIDERS: PCP Internal Medicine; Visit Provider Urology | DX: N40.1 Benign prostatic hyperplasia with lower urinary tract symptoms (principal) | CPT/HCPCS: 51700; 51798 ==

== ENCOUNTER 2022-09-24 09:38 | Outpatient (REF) | payer MEDICARE, SELFPAY ==
--- NOTE | ~2022-09-24 | US_ITS ---
EXAMINATION: US RETROPERITONEAL LIMITED (RENAL ONLY) CLINICAL INFORMATION: Flank pain. COMPARISON: CT urogram 09/01/2022. Renal ultrasound 05/31/2018. TECHNIQUE: Real-time imaging of the kidneys. Technically limited study secondary to bowel gas and body habitus. FINDINGS: RIGHT KIDNEY: 9.3 x 4.7 x 5.3 cm (SAG x AP x TRV). The kidney is normal in size, contour, and echogenicity. Renal cortical thickness is normal. No calculi or focal parenchymal lesions. No hydronephrosis. 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 LEFT KIDNEY: 9.2 x 4.2 x 4.4 cm (SAG x AP x TRV). The kidney is normal in size, contour, and echogenicity. Renal cortical thickness is normal. No calculi or focal parenchymal lesions. No hydronephrosis. 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 Otherwise unremarkable renal ultrasound with no hydronephrosis or nephrolithiasis..
[2022-09-24 11:23] LABS: Bacteria Urine None Seen (None Seen); Hyaline Casts Urine 0-2 /LPF (0-2); RBC Urine >20 /HPF (0-2); Squamous Epithelial Cell Urine 0-2 /HPF (0-2); WBC Urine >50 /HPF (0-5)
[2022-09-24 11:30] LABS: Appearance Urine Cloudy; Color Urine Dark Yellow; Glucose Urine UA Negative (Negative); Leukocyte Esterase Urine Moderate (2+) (Negative); Nitrite Urine Negative (Negative); Specific Gravity - Urine 1.015 (1.005-1.025); UMIC TRIGGER UA YES; Urine Blood Large (3+) (Negative); Urine Ketones Negative (Negative); Urine Protein 100 (2+) mg/dL (Neg-Trace)
== END 2022-09-24 09:39 | disposition home or self-care (01) ==
LOC: HO.LAB 09:38
PROVIDERS: PCP Internal Medicine; Visit Provider Urology
DX: R10.9 Unspecified abdominal pain (principal); N40.1 Benign prostatic hyperplasia with lower urinary tract symptoms
CPT/HCPCS: 36415; 76775; 80048; 81001; 85025; 86140; 87086

== ENCOUNTER 2022-09-24 11:15 | Outpatient (REF) | payer MEDICARE, SELFPAY | END 2022-09-24 11:16 | disposition home or self-care (01) | LOC: HO.US 11:15 | PROVIDERS: Visit Provider Internal Medicine | DX: Z13.89 Encounter for screening for other disorder (principal) ==

== ENCOUNTER 2022-09-24 11:55 | Outpatient (REF) | payer MEDICARE, SELFPAY ==
[2022-09-24 13:42] LABS: MANUAL DIFF FLAG NO
[2022-09-24 13:56] LABS: Basophils Percent Auto 0.5 % (0-2); Eosinophils Absolute Auto 0.1 X10*3/uL (0.0-0.4); Eosinophils Percent Auto 1.9 % (0-4); Hemoglobin 13.9 g/dl (14.0-18.0); Imm Gran Abs Auto 0.06 X10*3/uL (0.00-0.03); Imm Gran Pct Auto 1.1 % (0.0-0.4); Lymphocytes Percent Auto 17.3 % (20-40); Mean Corpuscular HGB Conc 33.1 g/dl (31.0-36.0); Mean Corpuscular Hemoglobin 30.8 pg (27.0-33.0); Mean Corpuscular Volume 93.1 fL (80.0-98.0); Mean Platelet Volume 9.7 fL (9.4-12.4); Monocytes Absolute Auto 0.7 X10*3/uL (0.1-1.2); Monocytes Percent Auto 11.6 % (2-11); Neutrophils Absolute Auto 3.9 x10*3/uL (2.0-8.3); Neutrophils Percent Auto 67.6 % (45-73); Platelet Count 206 X10*3/uL (160-400); Red Blood Count 4.51 X10*6/uL (4.60-5.80); Red Cell Distribution Width 12.2 % (11.0-16.0); White Blood Count 5.7 X10*3/uL (4.8-10.8)
[2022-09-24 14:19] LABS: Anion Gap 16 (12-20); Blood Urea Nitrogen 12 mg/dL (9-16); C Reactive Protein 0.67 mg/dL (< or = 0.50); Calcium 9.1 mg/dL (8.4-10.2); Carbon Dioxide 28 mmol/L (22-29); Chloride 104 mmol/L (96-108); Estimated Glomerular Filt Rate > 60; Glucose Random 87 mg/dL (60-115); Potassium 4.6 mmol/L (3.3-5.1); Sodium 143 mmol/L (135-145)
== END 2022-09-24 11:56 | disposition home or self-care (01) ==
LOC: HO.10HDL 11:55
PROVIDERS: Visit Provider Internal Medicine
DX: Z13.89 Encounter for screening for other disorder (principal)
CPT/HCPCS: 36415; 80048; 85025; 86140

== ENCOUNTER → 2022-09-30 10:30 | Outpatient (BNVA) | payer MEDICARE, SELFPAY | PROVIDERS: PCP Internal Medicine; Visit Provider Urology | DX: C67.9 Malignant neoplasm of bladder, unspecified (principal); Z98.890 Other specified postprocedural states | CPT/HCPCS: 51798; 99212 ==

== ENCOUNTER 2022-10-19 10:13 | Day surgery (SDC) | payer MEDICARE, SELFPAY ==
[2022-10-14 14:23] VITALS: BMI 24.3
--- NOTE | 2022-10-16 11:52 | HO.ANESPROP2 ---
Documented by User: Lashonda Overton NP 10/16/22 11:54 HPI - Anesthesia Eval Consult details Narrative: 77yo M for TUR Bladder Tumor PMFSH Active Problems Active Problems: All Active Problems (Updated 10/13/22 @ 11:28 by Kareen Peraza MD) BPH loc w urin obs/LUTS (Acute) Benign prostatic hyperplasia (BPH) with post-void dribbling (Acute) Urinary dribbling (Acute) Bladder cancer (Acute) Past Medical History Medical History (Updated 10/19/22 @ 07:49 by Ed Garcia MD) Acute cystitis without hematuria Bladder outlet obstruction BPH (benign prostatic hyperplasia) Elevated cholesterol Glaucoma Hyperlipidemia Overactive bladder Parkinson disease UTI (urinary tract infection) Family History Family History (Updated 10/13/22 @ 08:39 by Cindy Ho CMA) Other No family history of cancer Surgical History Surgical History (Updated 10/14/22 @ 14:08 by Jennifer Moreland RN) History of biopsy of bladder History of cataract extraction History of transurethral resection of bladder tumor (TURBT) Hx of colonoscopy S/P left knee arthroscopy History of Problems with Anesthesia: No Social History Social History (Updated 10/13/22 @ 08:40 by Cindy Ho CMA) Household Members: Spouse Housing: House Are you a primary career technical education teacher to a significant other at home: No Do you presently have visiting nurse or other home services: No Patient Tobacco Use Status: Former Tobacco user Quit Date: 1985 Tobacco use type: Cigarette Have you been hit, kicked, punched, or otherwise hurt by someone within the past year? If so, by whom?: No Are you DNR?: No Advance Directives: No Advance Directives Information Provided: Yes Advance Directives on File: No service: Yes Current occupational status: retired Meds Allergies Allergy/AdvReac Type Severity Reaction Status Date / Time Beta-Blockers AdvReac Severe low heart Verified 10/13/22 08:40 (Beta-Adrenergic Bloc rate- tired timolol AdvReac Low heart Verified 10/13/22 08:40 rate, tired Home Medications Medication Instructions Recorded Confirmed Last Taken Type simvastatin 20 mg tablet 20 mg PO BEDTIME 07/16/20 10/14/22 10/18/22 History ropinirole 0.25 mg tablet 0.25 mg PO TID 07/06/22 10/14/22 10/19/22 History carbidopa 25 mg-levodopa 100 mg 0.5 tab PO TID 09/08/22 10/14/22 10/19/22 History tablet Exam Exam Date and Time: October 16, 2022 1152 Height,Weight and Vital Signs: Height 5 ft 7 in Weight 70.6 kg Pertinent Lab Results Pertinent Lab Results: Laboratory Tests 10/13/22 10/13/22 09:11 09:11 WBC 3.9 L Hgb 13.3 L Hct 39.6 L Plt Count 176 Sodium 138 Potassium 4.1 Chloride 105 Carbon Dioxide 26 BUN 12 Creatinine 0.84 Assessment and Plan Assessment Anesthesia Assessment: Chart Reviewed Final Anesthetic Review History of Problems with Anesthesia: No Documented by User: Birdie Dior MD 10/19/22 15:26 [facility] Past Medical History Medical History (Updated 10/19/22 @ 07:49 by Ed Garcia MD) Acute cystitis without hematuria Bladder outlet obstruction BPH (benign prostatic hyperplasia) Elevated cholesterol Glaucoma Hyperlipidemia Overactive bladder Parkinson disease UTI (urinary tract infection) Family History Family History (Updated 10/13/22 @ 08:39 by Cindy Ho CMA) Other No family history of cancer Surgical History Surgical History (Updated 10/14/22 @ 14:08 by Jennifer Moreland RN) History of biopsy of bladder History of cataract extraction History of transurethral resection of bladder tumor (TURBT) Hx of colonoscopy S/P left knee arthroscopy Social History Social History (Updated 10/13/22 @ 08:40 by Cindy Ho CMA) Household Members: Spouse Housing: House Are you a primary career technical education teacher to a significant other at home: No Do you presently have visiting nurse or other home services: No Patient Tobacco Use Status: Former Tobacco user Quit Date: 1985 Tobacco use type: Cigarette Have you been hit, kicked, punched, or otherwise hurt by someone within the past year? If so, by whom?: No Are you DNR?: No Advance Directives: No Advance Directives Information Provided: Yes Advance Directives on File: No service: Yes Current occupational status: retired Meds Allergies Allergy/AdvReac Type Severity Reaction Status Date / Time Beta-Blockers AdvReac Severe low heart Verified 10/13/22 08:40 (Beta-Adrenergic Bloc rate- tired timolol AdvReac Low heart Verified 10/13/22 08:40 rate, tired Home Medications Medication Instructions Recorded Confirmed Last Taken Type simvastatin 20 mg tablet 20 mg PO BEDTIME 07/16/20 10/14/22 10/18/22 History ropinirole 0.25 mg tablet 0.25 mg PO TID 07/06/22 10/14/22 10/19/22 History carbidopa 25 mg-levodopa 100 mg 0.5 tab PO TID 09/08/22 10/14/22 10/19/22 History tablet Exam Airway Mallampati Class: I TM Dist: >3cm Neck ROM: Full Denture: Upper and Lower Heart: rrr Lungs: cta Assessment and Plan Assessment Anesthesia Assessment: Anesthesia Plan Discussed Final Anesthetic Review NPO: Yes ASA Class: III Final Preanesthetic Review: No Changes in Pt Med Stat, Meds/Allgs Chart Reviewed, Consent Obtained/Reviewed and Anes Risks/Benef Reviewed Patient Risk: Low Procedure Risk: Low Anesthetic Plan Anesthetic Plan: GA Disposition: Standard PACU
[2022-10-19] VITALS (8 sets, daily range): BP systolic 137–157; BP diastolic 64–73; PULSE 55–72; RESP 14–17; TEMP 36.3–36.7; O2SAT 97–99
[2022-10-19] MEDS: Acetaminophen Supp 650 MG SUPP.RECT PR (10:44)
[2022-10-19] MEDS: Lactated Ringers 1,000 ML 100 ML IVCONT (10:44)
--- NOTE | 2022-10-19 14:55 | MHC.SHP ---
Pre-Procedural Eval Section A Date of Service: 10/19/22 The patient is an INPATIENT: No Changes since office visit: No Cold of Flu in the past 2 weeks, No New Medical Problems, No Changes in Medication and No Patient answered all questions The History & Physical has been completed within 30 days and I have reviewed it.: Yes Section B Chief Complaint: Malignant neoplasm of bladder, unspecified Allergies: Allergies Allergy/AdvReac Type Severity Reaction Status Date / Time Beta-Blockers AdvReac Severe low heart Verified 10/13/22 08:40 (Beta-Adrenergic Bloc rate- tired timolol AdvReac Low heart Verified 10/13/22 08:40 rate, tired Plan Diagnosis/Plan: Unchanged (repeat TURBT) I have reviewed the history and physical and performed a pertinent physical examination on my patient. No changes have occurred unless specified. Time Spent With Patient Time: Total time managing care of this patient today ____ minutes.
--- NOTE | 2022-10-19 16:17 | P.OP_ITS ---
Operative Note Operative Note Date of Service: 10/19/22 Narrative: PreOperative Diagnosis: Invasive bladder cancer Post Operative Diagnosis: invasive bladder cancer Procedure: repeat TURBT with extensive fulguration = TURBT large Surgeon: Dr Ed Garcia Anesthesia: general Indications for procedure: noninvasive bladder cancer. On initial procedure had extensive mucosal changes throughout bladder. Presents today for repeat TURBT with fulguration. Procedure: After informed consent was verified the patient was brought to the operating ro om and placed in a supine position. Anesthesia was administered per protocol. The patient was prepped and draped in a sterile fashion. Safety pause time-out was performed. Antibiotics being given. Cystoscopy was performed using resectoscope. The bladder was examined good seen to be healing following prior procedure. The extensor very submucosal changed running around the upper pole of the bladder from the left the right side crossing over the dome of the bladder. There were minimal issues involving the right ureteric orifice. A left stent was seen emerging from the left ureteric orifice which is healing well after resection of superficial bladder cancer from jessie-ureteral opening. There were areas of mucosal thickening on the right bladder sidewall. Approximately 3 of these areas each 1 x 3 cm were resected. The rest of it had superficial changes. The area on the right bladder sidewall was clearly invasive bladder cancer this located on the upper posterior sidewall of the right bladder. We were able to use the GreenLight laser with settings of 30 joules in order to fulgurate the mucosa and the underlying layer of tissue. Extensive fulguration was performed through the dome of the bladder running from the right to the left side. All areas were addressed. There was also fulguration performed lower down medial to the left ureteric orifice within of the location of mucosal change. Based on a clock face fulguration around from the approximate 10:00 o'clock through 02:00 o'clock positions from the right bladder sidewall of into the left bladder sidewall. At the completion of the case there was minimal bleeding. Decision was made not to leave a catheter as this is been difficult for him to tolerate the past. He was extubated in operating room and transferred in stable condition to the recovery area Pathology: none Drains: none
== END 2022-10-19 17:22 | disposition home or self-care (01) ==
PROVIDERS: PCP Internal Medicine; Visit Provider Urology
PROC: 0TBB8ZZ Excision of Bladder, Via Natural or Artificial Opening Endoscopic (ICD-10-PCS; CPT 52240; principal; 2022-10-19 12:30)
DX: C67.8 Malignant neoplasm of overlapping sites of bladder (principal); N40.1 Benign prostatic hyperplasia with lower urinary tract symptoms; N13.8 Other obstructive and reflux uropathy; N32.81 Overactive bladder; N30.00 Acute cystitis without hematuria; G20 Parkinson's disease; E78.00 Pure hypercholesterolemia, unspecified; H40.9 Unspecified glaucoma; Z79.899 Other long term (current) drug therapy; Z88.8 Allergy status to other drugs, medicaments and biological substances; Z87.891 Personal history of nicotine dependence
CPT/HCPCS: 52240; J1100; J1885; J1956; J2405; J3010

== ENCOUNTER 2022-10-29 10:52 | Outpatient (REF) | payer MEDICARE, SELFPAY ==
[2022-10-29 14:02] LABS: Appearance Urine Cloudy; Color Urine Yellow; Glucose Urine UA Negative (Negative); Leukocyte Esterase Urine Moderate (2+) (Negative); Nitrite Urine Negative (Negative); PH 6.5 (5.0-9.0); Specific Gravity - Urine 1.015 (1.005-1.025); UMIC TRIGGER UA YES; Urine Blood Large (3+) (Negative); Urine Ketones Negative (Negative); Urine Protein 100 (2+) mg/dL (Neg-Trace)
[2022-10-29 14:07] LABS: Bacteria Urine None Seen (None Seen); Hyaline Casts Urine 0-2 /LPF (0-2); RBC Urine >20 /HPF (0-2); WBC Urine >50 /HPF (0-5)
== END 2022-10-29 10:53 | disposition home or self-care (01) ==
LOC: HO.HMGCLDS 10:52
PROVIDERS: PCP Internal Medicine; Visit Provider Urology
DX: C67.9 Malignant neoplasm of bladder, unspecified (principal); R82.90 Unspecified abnormal findings in urine
CPT/HCPCS: 81001; 87086

== ENCOUNTER → 2022-11-03 13:30 | Outpatient (BNVA) | payer MEDICARE, SELFPAY | PROVIDERS: PCP Internal Medicine; Visit Provider Urology | DX: R39.15 Urgency of urination (principal); C67.9 Malignant neoplasm of bladder, unspecified | CPT/HCPCS: 51798; 99212 ==

== ENCOUNTER 2022-11-20 14:44 | Outpatient (REF) | payer MEDICARE, SELFPAY ==
[2022-11-20 16:32] LABS: Urine Cytology See Pathology rpt
== END 2022-11-20 14:45 | disposition home or self-care (01) ==
LOC: HO.LAB 14:44
PROVIDERS: PCP Internal Medicine; Visit Provider Urology
DX: C67.9 Malignant neoplasm of bladder, unspecified (principal)
CPT/HCPCS: 52310; 88112; 99212

== ENCOUNTER → 2022-12-18 08:45 | Outpatient (BNVA) | payer MEDICARE, SELFPAY | PROVIDERS: PCP Internal Medicine; Visit Provider Urology | DX: C67.9 Malignant neoplasm of bladder, unspecified (principal); N40.1 Benign prostatic hyperplasia with lower urinary tract symptoms; N13.8 Other obstructive and reflux uropathy; N39.43 Post-void dribbling; Z79.899 Other long term (current) drug therapy | CPT/HCPCS: Q3014 ==